=== PATIENT | male | born 1980 | race African-American/Black ===

== ENCOUNTER 2021-12-18 16:59 | Emergency (ER) | payer MEDICAID, OTHER ==
[~2021-12-18] VITALS: Ht 180.3 cm; Wt 120.2 kg
[2021-12-18 18:03] LABS: Basophils # (auto) 0.2 10 ^3/uL (0-0.2); Basophils % (auto) 2.4 % (0.0-2.0); Eosinophils # (auto) 0 10 ^3/uL (0-0.8); Eosinophils % (auto) 0.6 % (0.0-7.0); Hematocrit 43.5 % (41.0-53.0); Hemoglobin 14.4 g/dL (13.5-17.5); Lymphocytes # (auto) 1.1 10 ^3/uL (0.4-5.4); Lymphocytes % (auto) 17.2 % (10.0-50.0); Mean Corpuscular Hemoglobin 28.9 pg (28.0-32.0); Mean Corpuscular Hgb Conc. 33.2 g/dL (32.0-36.0); Mean Corpuscular Volume 87.2 fL (80.0-100.0); Monocytes # (auto) 0.6 10 ^3/uL (0-1.3); Monocytes % (auto) 8.7 % (0.0-12.0); Neutrophils # (auto) 4.7 10 ^3/uL (1.6-8.6); Neutrophils % (auto) 71.1 % (37.0-80.0); Nucleated Red Blood Cells % 0.1 %; Red Blood Cells 4.99 10^6/uL (4.5-5.90); Red Cell Distribution Width 14.9 % (11.8-14.3); White Blood Cell 6.6 10^3/uL (4.4-10.8)
[2021-12-18 18:17] LABS: Albumin 3.9 g/dL (3.4-5.0); Calcium 9.4 mg/dL (8.5-10.1); Potassium 4.1 mmol/L (3.5-5.1)
[2021-12-18 18:20] LABS: BUN/Creatinine Ratio 4.8; Bilirubin, Total 0.8 mg/dL (0.2-1.0); Total Protein 7.9 g/dL (6.4-8.2)
[2021-12-18] MEDS ORDERED: PERCOT PO (20:35)
[2021-12-18 23:00] VITALS: BP 132/81
[2021-12-18] MEDS ORDERED: OXYCODONE W/ ACETAMINOPHEN 5/325MG TABLET PO ONE (23:30)
[2021-12-20] MEDS ORDERED: NAP500T PO (00:28)
== END 2021-12-19 00:38 | disposition home or self-care (01) ==
LOC: ER 16:59
DX: R10.84 Generalized abdominal pain (principal); R10.32 Left lower quadrant pain
CPT/HCPCS: 36415; 74176; 80053; 83690; 85025

== ENCOUNTER 2021-12-19 21:11 | Emergency (ER) | payer MEDICAID ==
[~2021-12-19] VITALS: Ht 180.3 cm; Wt 120.2 kg
[~2021-12-19 21:11] MED LIST: PERCOT PO
[2021-12-20] MEDS ORDERED: NAP500T PO (00:28)
[2021-12-20] MEDS ORDERED: KETOROLAC TROMETH 60MG/2ML VIAL IM ONE (00:30)
[2021-12-20 01:07] VITALS: BP 120/89
== END 2021-12-20 01:11 | disposition home or self-care (01) ==
LOC: ER 21:11
DX: K40.90 Unilateral inguinal hernia, without obstruction or gangrene, not specified as recurrent (principal); Z79.899 Other long term (current) drug therapy
CPT/HCPCS: 96372; 99283; J1885